=== PATIENT | female | born 1995 | race Caucasian/White ===

== ENCOUNTER 2021-08-23 08:57 | Emergency (ER) | payer OTHER ==
[~2021-08-23] VITALS: Ht 165.1 cm; Wt 73.9 kg
[2021-08-23 12:25] LABS: BASO % 0.4 % (0.0-1.0); EOS # 0.3 10^3/uL (0.0-0.5); EOS % 3.6 % (0.0-3.0); HEMATOCRIT 41.7 % (36.0-47.0); HEMOGLOBIN 13.8 g/dl (12.0-15.5); LYMPH # 1.9 10^3/uL (1.5-5.0); LYMPH % 25.2 % (24.0-44.0); MEAN CORPUSCULAR HEMOGLOBIN 30.3 pg (27.0-33.0); MEAN CORPUSCULAR HGB CONC 33.1 g/dl (32.0-36.5); MEAN CORPUSCULAR VOLUME 91.6 fl (80.0-96.0); MONO # 0.5 10^3/uL (0.0-0.8); MONO % 5.9 % (2.0-8.0); NEUTROPHILS # 4.9 10^3/uL (1.5-8.5); NEUTROPHILS % 64.6 % (36.0-66.0); PLATELET COUNT, AUTOMATED 258 10^3/uL (150-450); RED BLOOD COUNT 4.55 10^6/uL (4.00-5.40); WHITE BLOOD COUNT 7.6 10^3/uL (4.0-10.0)
[2021-08-23 13:00] VITALS: BP 107/56
[2021-08-23 13:05] LABS: BLOOD UREA NITROGEN 14 MG/DL (7-18); CALCIUM LEVEL 9.4 MG/DL (8.5-10.1); CARBON DIOXIDE LEVEL 26 MEQ/L (21-32); CHLORIDE LEVEL 110 MEQ/L (98-107); CREATININE FOR GFR 0.73 MG/DL (0.55-1.30); FREE T4 1.04 NG/DL (0.76-1.46); GLOMERULAR FILTRATION RATE > 60.0 (>60); GLUCOSE, FASTING 80 MG/DL (70-100); POTASSIUM SERUM 4.3 MEQ/L (3.5-5.1); SODIUM LEVEL 139 MEQ/L (136-145); THYROID STIMULATING HORMONE 0.582 uIU/ML (0.358-3.740)
== END 2021-08-23 14:11 | disposition home or self-care (01) ==
LOC: M ED 08:57
DX: R07.9 Chest pain, unspecified (principal); I49.9 Cardiac arrhythmia, unspecified; J45.909 Unspecified asthma, uncomplicated

== ENCOUNTER → 2022-06-23 | Outpatient (CLI) | payer OTHER ==
[~2022-06-23] MED LIST: ISOVUE-370 76% 100ML VIAL As Ordered ONE
== END ==
LOC: M RADPRO 10:50
PROVIDERS: ATTEND Obstetrics & Gynecology
DX: N97.9 Female infertility, unspecified (principal)
CPT/HCPCS: 58340; 74740; Q9967

== ENCOUNTER → 2022-08-30 | Outpatient (CLI) | payer OTHER | LOC: M LAB 13:05 | PROVIDERS: ATTEND Advanced Practice Midwife | DX: Z32.00 Encounter for pregnancy test, result unknown (principal) ==

== ENCOUNTER 2022-10-17 20:57 | Emergency (ER) | payer OTHER ==
[~2022-10-17] VITALS: Ht 165.1 cm; Wt 77.6 kg
[~2022-10-17 20:57] MED LIST changes: +CEPH500C PO; -ISOVUE-370 76% 100ML VIAL As Ordered ONE; +MULTTAB20 PO
[2022-10-18 01:06] VITALS: BP 126/92; TEMP 97.5; O2SAT 99
== END 2022-10-18 01:10 | disposition home or self-care (01) ==
LOC: M ED 20:57
DX: K14.8 Other diseases of tongue (principal); T78.1XXA Other adverse food reactions, not elsewhere classified, initial encounter; O9A.211 Injury, poisoning and certain other consequences of external causes complicating pregnancy, first trimester; J45.909 Unspecified asthma, uncomplicated; Z79.899 Other long term (current) drug therapy; Z3A.12 12 weeks gestation of pregnancy

== ENCOUNTER → 2022-10-21 | Outpatient (REF) | payer OTHER | LOC: M LAB REF 16:08 | PROVIDERS: ATTEND Physician Assistant | DX: R11.2 Nausea with vomiting, unspecified (principal) ==

== ENCOUNTER 2022-11-20 13:51 | Emergency (ER) | payer OTHER ==
[~2022-11-20] VITALS: Ht 165.1 cm; Wt 75.1 kg
[2022-11-20 13:53] VITALS: TEMP 98
[2022-11-20] MEDS ORDERED: ROBAFEN (14:32)
[2022-11-20] MEDS ORDERED: ALBU6.7H6 INH (14:32)
[2022-11-20] MEDS ORDERED: ACETAMINOPHEN TAB 650MG DOSE (2X325MG) PO ONE (15:20)
[2022-11-20 15:51] LABS: BASO % 0.4 % (0.0-1.0); EOS # 0.3 10^3/uL (0.0-0.5); EOS % 2.8 % (0.0-3.0); HEMATOCRIT 38.2 % (36.0-47.0); HEMOGLOBIN 13.2 g/dl (12.0-15.5); LYMPH # 1.5 10^3/uL (1.5-5.0); LYMPH % 15.2 % (24.0-44.0); MEAN CORPUSCULAR HEMOGLOBIN 30.1 pg (27.0-33.0); MEAN CORPUSCULAR HGB CONC 34.6 g/dl (32.0-36.5); MONO # 0.5 10^3/uL (0.0-0.8); MONO % 5.4 % (2.0-8.0); NEUTROPHILS # 7.5 10^3/uL (1.5-8.5); NEUTROPHILS % 75.7 % (36.0-66.0); PLATELET COUNT, AUTOMATED 278 10^3/uL (150-450); RED BLOOD COUNT 4.39 10^6/uL (4.00-5.40); WHITE BLOOD COUNT 9.9 10^3/uL (4.0-10.0)
[2022-11-20 16:30] VITALS: BP 130/81; O2SAT 97
== END 2022-11-20 16:47 | disposition home or self-care (01) ==
LOC: M ED 13:51
DX: O99.512 Diseases of the respiratory system complicating pregnancy, second trimester (principal); R05.9 Cough, unspecified; Z3A.17 17 weeks gestation of pregnancy; Z79.51 Long term (current) use of inhaled steroids; Z79.899 Other long term (current) drug therapy

== ENCOUNTER 2023-02-10 18:05 | Outpatient (CLI) | payer OTHER ==
[~2023-02-10] VITALS: Ht 165.1 cm; Wt 77.9 kg
[~2023-02-10 18:05] MED LIST changes: +ALBU6.7H6 INH; +ROBAFEN; +TUMS500C PO; +VENTAER INH
[2023-02-10 18:18] VITALS: BP 128/67; O2SAT 100
== END 2023-02-10 19:37 | disposition home or self-care (01) ==
LOC: M LDO 18:05
PROVIDERS: ATTEND Obstetrics & Gynecology
DX: O26.893 Other specified pregnancy related conditions, third trimester (principal); R53.1 Weakness; Z3A.28 28 weeks gestation of pregnancy
CPT/HCPCS: 59025; G0463

== ENCOUNTER → 2023-03-13 | Outpatient (CLI) | payer OTHER | LOC: M WHC 10:29 | PROVIDERS: ATTEND Advanced Practice Midwife | DX: O36.5930 Maternal care for other known or suspected poor fetal growth, third trimester, not applicable or unspecified (principal); Z3A.00 Weeks of gestation of pregnancy not specified ==

== ENCOUNTER → 2023-03-27 | Outpatient (CLI) | payer OTHER | LOC: M WHC 10:48 | PROVIDERS: ATTEND Advanced Practice Midwife | DX: O36.5930 Maternal care for other known or suspected poor fetal growth, third trimester, not applicable or unspecified (principal); Z3A.34 34 weeks gestation of pregnancy ==

== ENCOUNTER 2023-03-30 20:17 | Outpatient (CLI) | payer OTHER ==
[~2023-03-30] VITALS: Ht 165.1 cm; Wt 80.9 kg
[2023-03-30 20:43] VITALS: BP 120/76; O2SAT 96
== END 2023-03-30 22:00 | disposition home or self-care (01) ==
LOC: M LDO 20:17
PROVIDERS: ATTEND Obstetrics & Gynecology
DX: O26.893 Other specified pregnancy related conditions, third trimester (principal); R10.2 Pelvic and perineal pain; Z3A.35 35 weeks gestation of pregnancy
CPT/HCPCS: 59025; G0463

== ENCOUNTER → 2023-04-10 | Outpatient (CLI) | payer OTHER | LOC: M WHC 10:35 | PROVIDERS: ATTEND Advanced Practice Midwife | DX: O36.5930 Maternal care for other known or suspected poor fetal growth, third trimester, not applicable or unspecified (principal); Z3A.36 36 weeks gestation of pregnancy ==

== ENCOUNTER 2024-02-17 12:51 | Emergency (ER) | payer OTHER ==
[~2024-02-17] VITALS: Ht 165.1 cm; Wt 78.2 kg
[~2024-02-17 12:51] MED LIST changes: +COLA100C5 PO; +TUMS750C22 PO
[2024-02-17] MEDS: ONDANSETRON 4MG 2ML VIAL IV ONE (20:06)
[2024-02-17] MEDS: KETOROLAC 30 MG/ML 1ML VIAL IV ONE (20:07)
[2024-02-17 20:08] LABS: BASO % 0.1 % (0.0-1.0); HEMATOCRIT 43.3 % (36.0-47.0); HEMOGLOBIN 14.6 g/dl (12.0-15.5); LYMPH # 0.6 10^3/uL (1.5-5.0); LYMPH % 4.5 % (24.0-44.0); MEAN CORPUSCULAR HEMOGLOBIN 29.7 pg (27.0-33.0); MEAN CORPUSCULAR HGB CONC 33.7 g/dl (32.0-36.5); MONO # 0.1 10^3/uL (0.0-0.8); MONO % 0.7 % (2.0-8.0); NEUTROPHILS # 12.7 10^3/uL (1.5-8.5); NEUTROPHILS % 94.3 % (36.0-66.0); PLATELET COUNT, AUTOMATED 299 10^3/uL (150-450); RED BLOOD COUNT 4.92 10^6/uL (4.00-5.40); WHITE BLOOD COUNT 13.4 10^3/uL (4.0-10.0)
[2024-02-17] MEDS ORDERED: ISOVUE-370 76% 100ML VIAL As Ordered ONE (20:09)
[2024-02-17] MEDS: ACETAMINOPHEN *IV* 1,000 MG in IV 1 EA IV ONE (21:19)
[2024-02-17] MEDS: cefTRIAXone SOD 1 GM in DEXTROSE 5% (D5W) ADV/MINI-BAG 50 ML IV ONE (21:20)
[2024-02-17] MEDS ORDERED: FLOM0.4C39 PO (22:08)
[2024-02-17] MEDS ORDERED: BACT800T5 PO (22:08)
[2024-02-17] MEDS ORDERED: IBUP-1022 PO (22:08)
[2024-02-17] MEDS ORDERED: ONDA-282 PO (22:08)
[2024-02-17] MEDS: TAMSULOSIN 0.4 MG CAP PO ONE (22:13)
[2024-02-17 22:15] VITALS: BP 134/80; TEMP 98; O2SAT 97
== END 2024-02-17 22:28 | disposition home or self-care (01) ==
LOC: M ED 12:51
DX: N39.0 Urinary tract infection, site not specified (principal); N13.2 Hydronephrosis with renal and ureteral calculous obstruction; J45.909 Unspecified asthma, uncomplicated; Z79.899 Other long term (current) drug therapy
CPT/HCPCS: 74177; 80047; 81001; 85025; 87086; 96365; 96375; 99284; J0131; J0696; J1885; J2405; Q9967